=== PATIENT | female | born 1995 | race Caucasian/White ===

== ENCOUNTER 2017-09-29 21:39 | Emergency (ER) | payer OTHER ==
[~2017-09-29] VITALS: Ht 167.6 cm; Wt 83.2 kg
[2017-09-29] MEDS ORDERED: AMOXICILLIN 8751 TAB PO (21:54)
[2017-09-29 22:12] VITALS: BP 148/70; PULSE 103; TEMP 98.3
== END 2017-09-29 22:13 | disposition home or self-care (01) ==
LOC: COL.ER 21:39
DX: S51.852A Open bite of left forearm, initial encounter (principal); W54.0XXA Bitten by dog, initial encounter; Y92.009 Unspecified place in unspecified non-institutional (private) residence as the place of occurrence of the external cause